=== PATIENT | male | born 1975 | race Caucasian/White ===

== ENCOUNTER 2017-12-14 01:25 | Inpatient (IN) | payer OTHER ==
[2017-12-14] MEDS ORDERED: ACETAMINOPHEN 325 MG TAB PO ×2 (02:30→07:30)
[2017-12-14] MEDS ORDERED: NITROGLYCERIN (SL) 0.4 MG TAB SL ×2 (02:30→07:30)
[2017-12-14] MEDS ORDERED: NACL 0.9% 3 ML SYG IV ×3 (02:30→07:30)
[2017-12-14 03:36] LABS: ADD MAN DIFF? NO
[2017-12-14 03:59] LABS: ALANINE AMINOTRANSFERASE 87 IU/L (13-69); ALBUMIN 4.1 g/dl (3.3-4.9); ALBUMIN/GLOBULIN RATIO 1.24; ALKALINE PHOSPHATASE 46 IU/L (42-121); ANION GAP 14 (8-16); ASPARTATE AMINO TRANSFERASE 40 IU/L (15-46); BILIRUBIN,INDIRECT 0.5 mg/dl (0-1.1); BILIRUBIN,TOTAL 0.5 mg/dl (0.2-1.3); BLOOD UREA NITROGEN 14 mg/dl (7-20); CALCIUM 9.2 mg/dl (8.4-10.2); CARBON DIOXIDE 26 mmol/L (21-31); CHLORIDE 108 mmol/L (97-110); GLUCOSE 108 mg/dl (70-220); POTASSIUM 3.9 mmol/L (3.5-5.1); SODIUM 144 mmol/L (135-144); TOTAL PROTEIN 7.4 g/dl (6.1-8.1)
[2017-12-14 04:06] LABS: WHITE BLOOD COUNT 6.7 10^3/ul (4.8-10.8)
[2017-12-14 04:06] LABS: BASOPHIL # 0.1 10^3/ul (0.0-0.1); BASOPHILS % 0.9 % (0.0-2.0); EOSINOPHILS # 0.1 10^3/ul (0.0-0.5); EOSINOPHILS % 1.4 % (0.0-7.0); HEMATOCRIT 43.7 % (42.0-52.0); HEMOGLOBIN 14.8 g/dl (14.0-18.0); LYMPHOCYTES # 2.5 10^3/ul (0.8-2.9); LYMPHOCYTES % 37.3 % (15.0-51.0); MEAN CORPUSCULAR HEMOGLOBIN 30.4 pg (29.0-33.0); MEAN CORPUSCULAR HGB CONC 33.9 g/dl (32.0-37.0); MEAN CORPUSCULAR VOLUME 89.7 fl (82.0-101.0); MEAN PLATELET VOLUME 9.9 fl (7.4-10.4); MONOCYTE # 0.6 10^3/ul (0.3-0.9); MONOCYTES % 8.6 % (0.0-11.0); NEUTROPHIL # 3.4 10^3/ul (1.6-7.5); NEUTROPHILS % 51.3 % (39.0-77.0); PLATELET COUNT 245 10^3/UL (140-415); RED BLOOD COUNT 4.87 10^6/ul (4.70-6.10); RED CELL DISTRIBUTION WIDTH 12.6 % (11.5-14.5)
[2017-12-14 04:11] LABS: TROPONIN-I < 0.010 ng/ml (0.000-0.120)
[2017-12-14 04:27] LABS: HEMOGLOBIN A1C 5.9 % (0-5.9)
[2017-12-14] MEDS ORDERED: ALBUTEROL/IPRATROPIUM (NEB) 3 ML AMP HHN (07:30)
[2017-12-14] MEDS ORDERED: ONDANSETRON 4 MG INJ IV (07:30)
[2017-12-14] MEDS: ASPIRIN 81 MG TAB PO (12:24)
[2017-12-14] MEDS: AMLODIPINE 2.5 MG TAB PO (12:24)
[2017-12-14] MEDS: ENOXAPARIN 40 MG/0.4 ML SYG SC (12:36)
[2017-12-14 12:53] LABS: TROPONIN-I < 0.010 ng/ml (0.000-0.120)
[2017-12-14 14:18] LABS: CHOLESTEROL 239 mg/dl (100-200)
[2017-12-14 14:18] LABS: CHOL/HDL RATIO 5.9 RATIO; HDL CHOLESTEROL 40 mg/dl (27-67); LDL CHOLESTEROL,CALCULATED 154 mg/dl; TRIGLYCERIDES 223 mg/dl (0-149)
[2017-12-14] MEDS: ATORVASTATIN 40 MG TAB PO (20:43)
[2017-12-14] MEDS ORDERED: ATORVASTATIN 20 MG TAB PO (21:00)
[2017-12-15 06:00] LABS: ADD MAN DIFF? NO
[2017-12-15 06:07] LABS: BASOPHILS % 0.6 % (0.0-2.0); EOSINOPHILS # 0.1 10^3/ul (0.0-0.5); EOSINOPHILS % 1.4 % (0.0-7.0); HEMATOCRIT 45.5 % (42.0-52.0); HEMOGLOBIN 15.7 g/dl (14.0-18.0); LYMPHOCYTES # 2.3 10^3/ul (0.8-2.9); LYMPHOCYTES % 32.8 % (15.0-51.0); MEAN CORPUSCULAR HEMOGLOBIN 31.1 pg (29.0-33.0); MEAN CORPUSCULAR HGB CONC 34.5 g/dl (32.0-37.0); MEAN CORPUSCULAR VOLUME 90.1 fl (82.0-101.0); MEAN PLATELET VOLUME 9.8 fl (7.4-10.4); MONOCYTE # 0.5 10^3/ul (0.3-0.9); MONOCYTES % 7.2 % (0.0-11.0); NEUTROPHIL # 4.1 10^3/ul (1.6-7.5); NEUTROPHILS % 57.6 % (39.0-77.0); PLATELET COUNT 257 10^3/UL (140-415); RED BLOOD COUNT 5.05 10^6/ul (4.70-6.10); RED CELL DISTRIBUTION WIDTH 12.6 % (11.5-14.5)
[2017-12-15 06:07] LABS: WHITE BLOOD COUNT 7.1 10^3/ul (4.8-10.8)
[2017-12-15 06:22] LABS: ALANINE AMINOTRANSFERASE 87 IU/L (13-69); ALBUMIN 4.2 g/dl (3.3-4.9); ALBUMIN/GLOBULIN RATIO 1.23; ALKALINE PHOSPHATASE 48 IU/L (42-121); ANION GAP 15 (8-16); ASPARTATE AMINO TRANSFERASE 42 IU/L (15-46); BILIRUBIN,INDIRECT 0.7 mg/dl (0-1.1); BILIRUBIN,TOTAL 0.7 mg/dl (0.2-1.3); BLOOD UREA NITROGEN 14 mg/dl (7-20); CALCIUM 9.5 mg/dl (8.4-10.2); CARBON DIOXIDE 27 mmol/L (21-31); CHLORIDE 103 mmol/L (97-110); CREATININE 0.79 mg/dl (0.61-1.24); GLUCOSE 106 mg/dl (70-220); MAGNESIUM 2.3 mg/dl (1.7-2.5); POTASSIUM 4.3 mmol/L (3.5-5.1); SODIUM 141 mmol/L (135-144); TOTAL PROTEIN 7.6 g/dl (6.1-8.1)
[2017-12-15] MEDS: ASPIRIN 81 MG TAB PO (09:34)
[2017-12-15] MEDS: AMLODIPINE 2.5 MG TAB PO (09:34)
[2017-12-15] MEDS: ENOXAPARIN 40 MG/0.4 ML SYG SC (09:42)
== END 2017-12-15 14:19 | disposition home or self-care (01) | DRG 313 ==
LOC: 6WM 01:25
PROVIDERS: Internal Medicine
DX: R07.89 Other chest pain (principal); Z68.42 Body mass index [BMI] 45.0-49.9, adult; I10 Essential (primary) hypertension; E78.5 Hyperlipidemia, unspecified; E66.9 Obesity, unspecified; Z79.82 Long term (current) use of aspirin
CPT/HCPCS: 80053; 80061; 83036; 83735; 84443; 84484; 85025; 93306